=== PATIENT | male | born 1985 | race Caucasian/White ===

== ENCOUNTER 2018-01-11 18:49 | Emergency (ER) | payer MEDICAID ==
--- NOTE | 2018-01-11 21:45 | EDPHY ---
H & P Time Seen by Provider: 01/11/18 20:40 HPI/ROS: HPI Need psychiatric medications. 32-year-old male by foot. He was just released from [facility]. He is currently at [facility] [place] [facility]. He is out of his psychiatric medications which include Seroquel 200 mg at bedtime and Wellbutrin 200 mg twice daily. He is asking for prescriptions for these medications until he can get his regular refills through [facility] on Sunday. He has no other complaints. He is not significantly depressed. He denies hallucinations. No suicidal thoughts. ROS: Constitutional: No fever, no chills. No weakness. Respiratory: No cough. No shortness of breath. Cardiac: No chest pain, no palpitations. Gastrointestinal: No abdominal pain, no vomiting, no diarrhea. Musculoskeletal: No back pain. No neck pain. No myalgias or arthralgias. Neurological: No headache. No focal weakness or altered sensation. Past medical history: Bipolar, PTSD, polysubstance abuse, schizoaffective disorder. Social history: Smoker. No alcohol. As above. Here by himself. Physical Exam: General Appearance: Alert, no distress. This patient is responding to questions appropriately and in full sentences. This patient appears well- hydrated and well-nourished. Eyes: Pupils equal and round no pallor or injection. No lid edema, erythema or injection. Neurological: Motor sensory function is grossly intact. Cranial nerves are normal. Gait is normal. Skin: Warm and dry, no rashes. Extremities are symmetrical. All joints range without pain or impingement. Psychiatric: No agitation. No depression. Database: EKG: Imaging: Procedures: Emergency department course: Vital signs reviewed. I agreed to fill his prescriptions for a 5 day supply of his psychiatric medications as noted above. He was given these prescriptions. He states that he has the ability to fill them. His remaining emergency department course under my care has been uneventful. He was discharged in good condition. Differential Diagnosis: The differential diagnosis on this patient includes but is not limited to psychiatric medication refill request. Acute psychosis, suicidal ideation, homicidal ideation unlikely. This represents a partial list of diagnoses considered. These considerations are based on history, physical exam, past history, reassessment and diagnostic testing. Smoking Status: Current every day smoker Constitutional: Initial Vital Signs Temperature (C) 37.3 C 01/11/18 19:19 Heart Rate 117 H 01/11/18 19:19 Respiratory Rate 16 01/11/18 19:19 Blood Pressure 151/94 H 01/11/18 19:19 O2 Sat (%) 95 01/11/18 19:19 O2 Delivery Mode Room Air Allergies/Adverse Reactions: No Known Allergies Allergy (Unverified 01/11/18 19:23) Home Medications: Medication Instructions Recorded QUEtiapine FUMARATE [Seroquel 200 200 mg PO DAILY #7 tab 01/11/18 mg (*)] Seroquel 01/11/18 Wellbutrin Xl 01/11/18 buPROPion [Wellbutrin] 100 mg PO TID #12 tab 01/11/18 Medical Decision Making - Data Points Medications Given: Discontinued Medications Quetiapine Fumarate (Seroquel) 200 mg PO EDNOW ONE Stop: 01/11/18 22:06 Last Admin: 01/11/18 22:09 Dose: 200 mg Departure - Departure Disposition: Home, Routine, Self-Care Clinical Impression: Encounter for medication refill Condition: Good Instructions: Bipolar Disorder (ED) Additional Instructions: Read and follow provided instructions. Follow-up with [facility] on Sunday for re-evaluation and refill of your medications. Take medication as prescribed. Return to the emergency department for worsening symptoms or other serious concerns. Referrals: [facility],. [Clinic] - As per Instructions Prescriptions: buPROPion [Wellbutrin] 100 mg PO TID #12 tab QUEtiapine FUMARATE [Seroquel 200 mg (*)] 200 mg PO DAILY #7 tab
[2018-01-11] MEDS ORDERED: QUEtiapine FUMARATE 200 MG TAB ONE (22:02)
[2018-01-11] MEDS ORDERED: QUEtiapine FUMARATE 200 MG TAB PO ONE (22:05)
[2018-01-11 22:56] VITALS: BP 140/85
== END 2018-01-11 22:10 | disposition home or self-care (01) ==
DX: Z76.0 Encounter for issue of repeat prescription (principal); F17.200 Nicotine dependence, unspecified, uncomplicated